=== PATIENT | male | born 1980 | race Caucasian/White ===

== ENCOUNTER 2017-01-03 23:41 | Emergency (ER) | payer SELFPAY ==
[~2017-01-03] VITALS: Ht 180.3 cm; Wt 81.6 kg
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
[2017-01-03] MEDS ORDERED: IV NORMAL SALINE 1,000ML 1,000 ML IV SCH (23:59)
[2017-01-04] MEDS ORDERED: HYDROmorphone PF 1 MG/ML DISP.SYRIN IV ONE
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
[2017-01-04 01:37] LABS: BACTERIA,URINE 0 /HPF (0-FEW); BILIRUBIN,URINE NEG (NEG); CLARITY,URINE CLEAR; COLOR,URINE YELLOW; GLUCOSE,URINE NEG (NEG); NITRITE,URINE NEG (NEG); RBC,URINE 0 /HPF (0-2); SQUAMOUS EPITHELIAL CELL,UR OCC /LPF; UROBILINOGEN,URINE 0.2 mg/dL (0.2 mg/dL); WBC,URINE RARE /HPF (0-4)
[2017-01-04] MEDS ORDERED: HYDR-965 PO (01:49)
[2017-01-04] MEDS ORDERED: TIZA4TAB PO (01:49)
[2017-01-04] MEDS ORDERED: HYDROcodone/APAP 10/325 1 TAB TABLET ONE (01:51)
[2017-01-04 01:59] VITALS: BP 113/64
[2017-01-04] MEDS ORDERED: HYDROcodone/APAP 10/325 1 TAB TABLET PO ONE (02:00)
[2017-01-04] MEDS ORDERED: ONDANSETRON PF 4 MG/2 ML VIAL. IV ONE ×2 (02:00)
== END 2017-01-04 02:00 | disposition home or self-care (01) ==
LOC: ER 23:41
DX: S39.012A Strain of muscle, fascia and tendon of lower back, initial encounter (principal); S70.11XA Contusion of right thigh, initial encounter; Z88.0 Allergy status to penicillin; Z88.8 Allergy status to other drugs, medicaments and biological substances; V86.59XA Driver of other special all-terrain or other off-road motor vehicle injured in nontraffic accident, initial encounter; Y93.I9 Activity, other involving external motion; Y99.8 Other external cause status; Y92.89 Other specified places as the place of occurrence of the external cause
CPT/HCPCS: 72131; 72192; 81001; 96361; 96374; 96375; 96376; 99285; J1170; J2405; J7030